=== PATIENT | male | born 1990 | race Caucasian/White ===

== ENCOUNTER → 2023-03-28 10:56 | Outpatient (CLI) | payer BC, SELFPAY ==
--- NOTE | ~2023-03-28 | XR_ITS ---
EXAMINATION: XR thoracic spine 2V DATE: 03/28/2023 11:39 INDICATION: Neck and back pain TECHNIQUE: Two views of the thoracic spine are obtained. COMPARISON: None. FINDINGS: Bone alignment is normal. There is no fracture. The vertebral body heights and alignment ar e normal. The intervertebral disc spaces are maintained. The visualized portions of the lungs are unr emarkable. The heart size is normal. IMPRESSION: 1. Unremarkable thoracic spine. Reviewed, dictated and finalized at location A.
--- NOTE | ~2023-03-28 | XR_ITS ---
EXAMINATION:XR cervical spine min 6V DATE: 03/28/2023 11:39 INDICATION: Neck pain TECHNIQUE: AP, lateral in neutral, flexion, extension, bilateral oblique, lateral swimmers and odonto id views of the cervical spine are provided. COMPARISON: None FINDINGS: There is straightening of the cervical spine which can be positional or due to muscular spa sm. Alignment is normal. No hypermobility is present with flexion or extension. The odontoid process is intact. No fracture is identified. There is mild loss of intervertebral disc space height at C4-5 and C5-6. The vertebral body heights are maintained. Small degenerative osteophytes project from the anterior endplates of multiple vertebral bodies. Prevertebral soft tissues are normal. IMPRESSION: 1. Mild cervical spondylosis without acute findings. Reviewed, dictated and finalized at location A.
== END ==
PROVIDERS: PCP Chiropractor; Visit Provider Chiropractor
DX: M54.6 Pain in thoracic spine (principal); M47.892 Other spondylosis, cervical region
CPT/HCPCS: 72052; 72070